=== PATIENT | male | born 1965 | race Hispanic/Latino ===

== ENCOUNTER → 2019-07-15 | Outpatient (CLI) | payer OTHER | END | disposition home or self-care (01) | LOC: RAH 07-10 10:26 | PROVIDERS: ATTEND Family Medicine | DX: R94.5 Abnormal results of liver function studies (principal) | CPT/HCPCS: 76705 ==

== ENCOUNTER 2022-07-07 00:30 | Emergency (ER) | payer OTHER ==
[~2022-07-07] VITALS: Ht 170.2 cm; Wt 82.6 kg
[2022-07-07 01:28] LABS: INFLUENZA TYPE A NEGATIVE FOR TYPE A (NEG); INFLUENZA TYPE B NEGATIVE FOR TYPE B (NEG)
[2022-07-07 01:35] VITALS: BP 135/88
== END 2022-07-07 01:40 | disposition home or self-care (01) ==
LOC: EDH 00:30
DX: R05.9 Cough, unspecified (principal); B34.9 Viral infection, unspecified; Z20.822 Contact with and (suspected) exposure to COVID-19
CPT/HCPCS: 99283; 87635; 87807; 87804 ×2; C9803

== ENCOUNTER → 2023-08-28 | Outpatient (CLI) | payer OTHER | END | disposition home or self-care (01) | LOC: SHCH 11:19 | PROVIDERS: ATTEND Internal Medicine | DX: R01.1 Cardiac murmur, unspecified (principal); I10 Essential (primary) hypertension; E78.5 Hyperlipidemia, unspecified; Z95.1 Presence of aortocoronary bypass graft | CPT/HCPCS: 93306 ==

== ENCOUNTER → 2024-04-22 | Outpatient (CLI) | payer OTHER | END | disposition home or self-care (01) | LOC: RAH 09:45 | PROVIDERS: ATTEND Family Medicine | DX: K40.90 Unilateral inguinal hernia, without obstruction or gangrene, not specified as recurrent (principal) | CPT/HCPCS: 76870 ==

== ENCOUNTER → 2024-05-02 | Outpatient (CLI) | payer OTHER ==
[2024-05-02 12:22] LABS: CREATININE 0.9 mg/dL (0.5-1.3); POTASSIUM 4.4 mmol/L (3.5-5.1)
== END | disposition home or self-care (01) ==
LOC: LAB 11:16
PROVIDERS: ATTEND Internal Medicine
DX: R07.9 Chest pain, unspecified (principal)
CPT/HCPCS: 36415; 80048

== ENCOUNTER 2024-05-04 18:27 | Inpatient (IN) | payer OTHER ==
[~2024-05-04] VITALS: Ht 167.6 cm; Wt 84.8 kg
[2024-05-04 18:52] LABS: BASOPHILS # (AUTO) 0.04 K/uL (0.00-0.20); BASOPHILS % (AUTO) 0.5 % (0.0-5.0); EOSINOPHILS # (AUTO) 0.07 K/uL (0.00-0.70); EOSINOPHILS % (AUTO) 0.9 % (0.0-8.0); IMMATURE GRANULOCYTE ABSOLUTE 0.01 K/uL (0-1); LYMPHOCYTES # (AUTO) 2.1 K/uL (1.0-4.8); LYMPHOCYTES % (AUTO) 25.2 % (21.0-51.0); MEAN CORPUSCULAR HEMOGLOBIN 34.3 pg (27.0-33.0); MEAN CORPUSCULAR HGB CONC 34.8 g/dL (32.0-36.0); MEAN CORPUSCULAR VOLUME 98.7 fL (79-99); MONOCYTES # (AUTO) 0.8 K/uL (0.1-1.0); MONOCYTES % (AUTO) 10.2 % (3.0-13.0); NEUTROPHILS # (AUTO) 5.2 K/uL (1.8-7.7); NEUTROPHILS % (AUTO) 63.1 % (40.0-77.0); PLATELET COUNT (AUTO) 278 K/uL (130-400); RED BLOOD CELL COUNT(AUTO) 4.46 MIL/uL (4.50-6.20); RED CELL DISTRIBUTION WIDTH 11.4 % (11.0-15.5); WHITE BLOOD COUNT (AUTO) 8.2 K/uL (4.8-10.8)
[2024-05-04 18:57] LABS: CREATININE 1.1 mg/dL (0.5-1.3); POTASSIUM 3.6 mmol/L (3.5-5.1)
[2024-05-04 18:59] LABS: INR 0.96 (0.85-1.15); PROTHROMBIN TIME 10.4 SEC (9.6-11.6)
[2024-05-04 19:01] LABS: PARTIAL THROMBOPLASTIN TIME 26.2 SEC (26.3-35.5)
[2024-05-04 19:21] LABS: B-TYPE NATRIURETIC PEPTIDE 62 pg/mL (0-100)
[2024-05-04] MEDS: HEParin 5,000 UNIT VIAL IV ONE (19:40)
[2024-05-04] MEDS: HEParin 25,000 UNITS/250ML D5W 250 ML IV PRN (19:41)
[2024-05-04] MEDS: CLOPIDOGREL 300MG TAB PO ONE (19:52)
[2024-05-04] MEDS: ASPIRIN 325MG TAB PO ONE (19:52)
[2024-05-04] MEDS: 0.9%NACL 1000ML 1,000 ML IV SCH (20:28)
[2024-05-04] MEDS ORDERED: ONDANSETRON 4MG INJ IVP PRN (20:30)
[2024-05-04] MEDS ORDERED: LACTULOSE 20 GM/30 ML UDCUP PO PRN (20:30)
[2024-05-04] MEDS ORDERED: DEXTROSE 50%-WATER 50 ML DISP.SYRIN IV PRN (20:30)
[2024-05-04] MEDS ORDERED: GLUCAGON 1MG KIT 1 MG ML IM PRN (20:30)
[2024-05-04] MEDS ORDERED: ALBUTEROL 0.083% 2.5 MG/3 ML INH IH PRN (20:30)
[2024-05-04] MEDS ORDERED: MAGNESIUM 2GM PREMIX 50ML 50 ML IV PRN (20:30)
[2024-05-04] MEDS ORDERED: LAbetaLOL 20MG SYG IV PRN (20:30)
[2024-05-04] MEDS: INSULIN humuLIN R 100 UNIT/ML 3ML SQ SCH (21:00)
[2024-05-04 22:28] LABS: AMPHET/METH SCREEN,URINE NEGATIVE (NEGATIVE); BARBITURATE SCREEN, URINE NEGATIVE (NEGATIVE); BENZODIAZEPINES SCREEN,URINE NEGATIVE (NEGATIVE); CANNABINOID SCREEN,URINE NEGATIVE (NEGATIVE); COCAINE SCREEN,URINE NEGATIVE (NEGATIVE); OPIATE SCREEN,URINE NEGATIVE (NEGATIVE); PHENCYCLIDINE SCREEN,URINE NEGATIVE (NEGATIVE)
[2024-05-04 22:50] VITALS: O2SAT 100
[2024-05-05] VITALS (10 sets, daily range): BP systolic 91–124; BP diastolic 63–82; PULSE 52–69; RESP 16–20; TEMP 98–98.9; O2SAT 97–100
[2024-05-05 02:36] LABS: INR 1.05 (0.85-1.15); PROTHROMBIN TIME 11.3 SEC (9.6-11.6)
[2024-05-05 02:39] LABS: PARTIAL THROMBOPLASTIN TIME 97.9 SEC (26.3-35.5)
[2024-05-05] MEDS: acetaMINOPHEN 325 MG TAB PO PRN (03:13)
[2024-05-05 04:17] LABS: BASOPHILS # (AUTO) 0.03 K/uL (0.00-0.20); BASOPHILS % (AUTO) 0.4 % (0.0-5.0); EOSINOPHILS # (AUTO) 0.04 K/uL (0.00-0.70); EOSINOPHILS % (AUTO) 0.6 % (0.0-8.0); IMMATURE GRANULOCYTE ABSOLUTE 0.03 K/uL (0-1); LYMPHOCYTES # (AUTO) 1.1 K/uL (1.0-4.8); LYMPHOCYTES % (AUTO) 15.7 % (21.0-51.0); MEAN CORPUSCULAR HEMOGLOBIN 34.2 pg (27.0-33.0); MEAN CORPUSCULAR HGB CONC 34.5 g/dL (32.0-36.0); MEAN CORPUSCULAR VOLUME 99.2 fL (79-99); MONOCYTES # (AUTO) 0.8 K/uL (0.1-1.0); MONOCYTES % (AUTO) 11.3 % (3.0-13.0); NEUTROPHILS # (AUTO) 5.2 K/uL (1.8-7.7); NEUTROPHILS % (AUTO) 71.6 % (40.0-77.0); PLATELET COUNT (AUTO) 218 K/uL (130-400); RED BLOOD CELL COUNT(AUTO) 3.83 MIL/uL (4.50-6.20); RED CELL DISTRIBUTION WIDTH 11.7 % (11.0-15.5); WHITE BLOOD COUNT (AUTO) 7.3 K/uL (4.8-10.8)
[2024-05-05 04:47] LABS: CREATININE 0.8 mg/dL (0.5-1.3); HEMOGLOBIN A1C 5.4 % (4.0-6.0); MAGNESIUM 1.8 mg/dL (1.80-2.40); PHOSPHORUS 3.6 mg/dL (2.5-4.9); POTASSIUM 3.7 mmol/L (3.5-5.1); THYROID STIMULATING HORMONE 2.35 uIU/mL (0.36-3.74)
[2024-05-05] MEDS: ASPIRIN 81MG CHEW TAB PO SCH (10:21)
[2024-05-05] MEDS: PANTOPRAZOLE 40 MG TAB DR PO SCH (10:21)
[2024-05-05] MEDS: CLOPIDOGREL 75MG TAB PO SCH (10:22)
[2024-05-05] MEDS: POTASSIUM CHLORIDE 10% ELIXIR 20 MEQ/15 ML UDCUP PO PRN (12:38)
[2024-05-05] MEDS: metoPROLOL tartRATE 25 MG TAB PO ONE (13:29)
[2024-05-05 14:10] LABS: INR 1.04 (0.85-1.15); PROTHROMBIN TIME 11.2 SEC (9.6-11.6)
[2024-05-05 14:11] LABS: PARTIAL THROMBOPLASTIN TIME 61.2 SEC (26.3-35.5)
[2024-05-05] MEDS: metoPROLOL tartRATE 25 MG TAB PO SCH (20:46)
[2024-05-05] MEDS: atorVAStatin 40 MG TABLET PO SCH (20:46)
[2024-05-06] VITALS (25 sets, daily range): BP systolic 94–154; BP diastolic 51–84; PULSE 58–86; RESP 8–20; TEMP 98–99; O2SAT 93–99
[2024-05-06 03:58] LABS: HEMATOCRIT 39.9 % (42-54); MEAN CORPUSCULAR HEMOGLOBIN 34.5 pg (27.0-33.0); MEAN CORPUSCULAR HGB CONC 34.3 g/dL (32.0-36.0); MEAN CORPUSCULAR VOLUME 100.5 fL (79-99); RED BLOOD CELL COUNT(AUTO) 3.97 MIL/uL (4.50-6.20); RED CELL DISTRIBUTION WIDTH 11.8 % (11.0-15.5); WHITE BLOOD COUNT (AUTO) 7.3 K/uL (4.8-10.8)
[2024-05-06 04:06] LABS: CREATININE 0.8 mg/dL (0.5-1.3); POTASSIUM 3.7 mmol/L (3.5-5.1)
[2024-05-06] MEDS ORDERED: 0.9% NACL 500ML IV.SOLN 500 ML IV SCH (05:00)
[2024-05-06] MEDS: HEParin 25,000 UNITS/250ML D5W 250 ML IV SCH (10:00)
[2024-05-06] MEDS ORDERED: BIVALIRUDIN 250 MG/VIAL IV ONE (15:01)
[2024-05-06] MEDS ORDERED: LIDOCAINE HCL 400MG/20ML VIAL ONE (15:01)
[2024-05-06] MEDS ORDERED: IOHEXOL-350 50ML VIAL IV ONE (15:01)
[2024-05-06] MEDS ORDERED: NITROGLYCERIN 50MG VIAL ONE (15:02)
[2024-05-06] MEDS ORDERED: HEParin-NS 1,000 UNIT/500 ML 1,000 ML IV ONE (15:02)
[2024-05-06] MEDS ORDERED: IOHEXOL 350 MG/ML 100ML INFUS..BTL IV ONE ×2 (15:03→16:07)
[2024-05-06] MEDS ORDERED: HEParin 10,000 UNIT/10ML (1,000 UNIT/ML) VIAL ONE (15:13)
[2024-05-06] MEDS ORDERED: MIDAZOLAM HCL 1 MG/ML 2ML VIAL ONE (15:34)
[2024-05-06] MEDS ORDERED: FENTanyl CITRate PF 50 MCG/1 ML 2ML VIAL ONE (15:34)
[2024-05-06] MEDS ORDERED: HEParin 25,000 UNITS/250ML D5W 250 ML IV ONE (16:29)
[2024-05-06] MEDS: 0.9%NACL 1000ML 1,000 ML IV SCH (17:55)
[2024-05-06 22:52] LABS: INR 1.06 (0.85-1.15); PROTHROMBIN TIME 11.4 SEC (9.6-11.6)
[2024-05-06 22:54] LABS: PARTIAL THROMBOPLASTIN TIME 78.4 SEC (26.3-35.5)
[2024-05-07] VITALS (33 sets, daily range): BP systolic 97–132; BP diastolic 47–78; PULSE 57–79; RESP 10–25; TEMP 98.5–98.7; O2SAT 95–99
[2024-05-07 05:34] LABS: BASOPHILS # (AUTO) 0.02 K/uL (0.00-0.20); BASOPHILS % (AUTO) 0.2 % (0.0-5.0); EOSINOPHILS # (AUTO) 0.03 K/uL (0.00-0.70); EOSINOPHILS % (AUTO) 0.4 % (0.0-8.0); HEMATOCRIT 38.7 % (42-54); IMMATURE GRANULOCYTE ABSOLUTE 0.02 K/uL (0-1); LYMPHOCYTES % (AUTO) 11.9 % (21.0-51.0); MEAN CORPUSCULAR HEMOGLOBIN 34.3 pg (27.0-33.0); MEAN CORPUSCULAR HGB CONC 34.9 g/dL (32.0-36.0); MEAN CORPUSCULAR VOLUME 98.2 fL (79-99); MONOCYTES # (AUTO) 0.7 K/uL (0.1-1.0); NEUTROPHILS # (AUTO) 6.6 K/uL (1.8-7.7); NEUTROPHILS % (AUTO) 79.3 % (40.0-77.0); PLATELET COUNT (AUTO) 206 K/uL (130-400); RED BLOOD CELL COUNT(AUTO) 3.94 MIL/uL (4.50-6.20); RED CELL DISTRIBUTION WIDTH 11.5 % (11.0-15.5); WHITE BLOOD COUNT (AUTO) 8.3 K/uL (4.8-10.8)
[2024-05-07 05:41] LABS: CREATININE 0.8 mg/dL (0.5-1.3); POTASSIUM 3.7 mmol/L (3.5-5.1)
[2024-05-07 05:46] LABS: INR 1.05 (0.85-1.15); PROTHROMBIN TIME 11.3 SEC (9.6-11.6)
[2024-05-07 05:48] LABS: PARTIAL THROMBOPLASTIN TIME 69.2 SEC (26.3-35.5)
[2024-05-07] MEDS ORDERED: IOHEXOL 350 MG/ML 100ML INFUS..BTL IV ONE (11:40)
[2024-05-07 11:50] LABS: BILIRUBIN,DIRECT 0.2 mg/dL (0.0-0.3); BILIRUBIN,TOTAL 0.9 mg/dL (0.2-1.0); TOTAL PROTEIN, SERUM 6.7 g/dL (6.0-8.3)
[2024-05-07 16:10] LABS: ABG BASE EXCESS -0.1 mmol/L (-2.0-3.0); ABG HCO3 23.2 mmol/L (21.0-28.0); ABG OXYGEN SATURATION 94.9 % (94.0-98.0); ABG PCO2 34 mmHg (35-48); ABG PH 7.452 (7.350-7.450); PO2, ARTERIAL BG 70.1 mmHg (83.0-108.0); VENT MODE, BG RA (ROOM AIR)
[2024-05-08] VITALS (28 sets, daily range): BP systolic 87–149; BP diastolic 50–121; PULSE 62–109; RESP 7–19; TEMP 98.2–101.7; O2SAT 95–100
[2024-05-08 03:49] LABS: BASOPHILS # (AUTO) 0.02 K/uL (0.00-0.20); BASOPHILS % (AUTO) 0.2 % (0.0-5.0); EOSINOPHILS # (AUTO) 0.04 K/uL (0.00-0.70); EOSINOPHILS % (AUTO) 0.4 % (0.0-8.0); HEMATOCRIT 36.8 % (42-54); IMMATURE GRANULOCYTE ABSOLUTE 0.02 K/uL (0-1); LYMPHOCYTES % (AUTO) 9.7 % (21.0-51.0); MEAN CORPUSCULAR HEMOGLOBIN 34.4 pg (27.0-33.0); MEAN CORPUSCULAR HGB CONC 35.6 g/dL (32.0-36.0); MEAN CORPUSCULAR VOLUME 96.6 fL (79-99); MONOCYTES # (AUTO) 0.8 K/uL (0.1-1.0); NEUTROPHILS # (AUTO) 8.2 K/uL (1.8-7.7); NEUTROPHILS % (AUTO) 81.5 % (40.0-77.0); PLATELET COUNT (AUTO) 190 K/uL (130-400); RED BLOOD CELL COUNT(AUTO) 3.81 MIL/uL (4.50-6.20); RED CELL DISTRIBUTION WIDTH 11.6 % (11.0-15.5)
[2024-05-08 04:00] LABS: CREATININE 0.8 mg/dL (0.5-1.3); INR 1.05 (0.85-1.15); POTASSIUM 3.5 mmol/L (3.5-5.1); PROTHROMBIN TIME 11.3 SEC (9.6-11.6)
[2024-05-08 04:02] LABS: PARTIAL THROMBOPLASTIN TIME 51.8 SEC (26.3-35.5)
[2024-05-08 04:04] LABS: TOTAL PROTEIN, SERUM 6.8 g/dL (6.0-8.3)
[2024-05-08 04:10] LABS: B-TYPE NATRIURETIC PEPTIDE 394 pg/mL (0-100)
[2024-05-08] MEDS: KCL 20 MEQ ERTAB PO PRN (06:26)
[2024-05-08] MEDS ORDERED: NOREPINEPHRIN 8MG/250ML NS 250 ML IV PRN (08:00)
[2024-05-08] MEDS ORDERED: NITROGLYCERIN 50MG/D5W 250ML 1 BOT ONE (09:38)
[2024-05-08] MEDS ORDERED: LIDOCAINE 2G/250ML 250 ML IV ONE (09:39)
[2024-05-08] MEDS ORDERED: ceFAZolin SODIUM 1 GM VIAL ONE (12:42)
[2024-05-08] MEDS ORDERED: PAPAVERINE HCL 30 MG/ML 2ML VIAL ONE (12:42)
[2024-05-08] MEDS ORDERED: HEParin-NS 1,000 UNIT/500 ML 500 ML IV ONE (12:42)
[2024-05-08] MEDS ORDERED: LACTULOSE 20 GM/30 ML UDCUP PO PRN (16:30)
[2024-05-08] MEDS ORDERED: MAGNESIUM HYDROXIDE 30 ML/UDCUP PO PRN (16:30)
[2024-05-08] MEDS ORDERED: proPOFol 10 MG/ML 20ML VIAL IV ONE (16:32)
[2024-05-08] MEDS ORDERED: HEParin 10,000 UNIT/10ML (1,000 UNIT/ML) VIAL ONE ×3 (16:32→19:43)
[2024-05-08] MEDS ORDERED: PROTAMINE SULFATE 10 MG/ML 25ML VIAL IV ONE (16:32)
[2024-05-08] MEDS ORDERED: EPINEPHrine PF 1MG (1:1,000) 1 MG/ML AMP ONE (16:32)
[2024-05-08] MEDS ORDERED: LIDOCAINE PF 100MG/5ML (2%) SYRINGE 5ML ONE ×2 (16:32→19:33)
[2024-05-08] MEDS ORDERED: SODIUM BICARB 50MEQ 50ML VIAL 200 ML ONE (16:32)
[2024-05-08] MEDS ORDERED: NOREPINEPHRINE BITARTRATE 1 MG/1 ML ML IV ONE (16:32)
[2024-05-08] MEDS ORDERED: FENTanyl CITRate PF 50 MCG/1 ML 20ML VIAL IJ ONE ×2 (16:32→21:45)
[2024-05-08] MEDS ORDERED: GLYCOPYRROLATE 0.2 MG/ML 5 ML VIAL ONE (16:33)
[2024-05-08] MEDS ORDERED: rocuRONium bROMide 10MG/1ML 5ML VL ONE ×2 (16:33→19:20)
[2024-05-08] MEDS ORDERED: MIDAZOLAM HCL 1 MG/ML 2ML VIAL ONE (16:33)
[2024-05-08] MEDS ORDERED: ETOMIDATE 20MG VIAL ONE (16:33)
[2024-05-08] MEDS: ceFAZolin SODIUM 2 GM VIAL IVPB ONE (16:55)
[2024-05-08] MEDS ORDERED: acetaMINOPHEN 325 MG TAB PO PRN (17:00)
[2024-05-08] MEDS ORDERED: NITROGLYCERIN 50MG/D5W 250ML 250 BOT IV SCH (17:00)
[2024-05-08] MEDS ORDERED: NOREPINEPHRINE BITARTRATE 8 MG in DEXTROSE 5%-WATER 250 ML IV PRN (17:00)
[2024-05-08] MEDS ORDERED: DEXTROSE 50%-WATER 50 ML DISP.SYRIN IV PRN (17:00)
[2024-05-08] MEDS ORDERED: aminoCAProic ACID 5,000MG VIAL 15,000 MG in 0.9% NACL 250ML 250 ML IV SCH (17:00)
[2024-05-08] MEDS ORDERED: 0.9%NACL 10ML VIAL IVP PRN (17:00)
[2024-05-08] MEDS ORDERED: CALCIUM GLUC 1GM 1 GM in 0.9%NACL 50ML 50 ML IV PRN (17:00)
[2024-05-08] MEDS ORDERED: 0.9% NACL 500ML IV.SOLN 500 ML IV SCH (17:00)
[2024-05-08] MEDS ORDERED: EPINEPHrine PF 1MG (1:1,000) 10 MG in 0.9% NACL 250ML 240 ML IV PRN (17:00)
[2024-05-08] MEDS ORDERED: ALBUMIN (HUMAN) 5% 250 ML IV PRN (17:00)
[2024-05-08] MEDS ORDERED: GLUCAGON 1MG KIT 1 MG ML IM PRN (17:00)
[2024-05-08] MEDS ORDERED: morPHINE 2 MG SYG IV PRN (17:00)
[2024-05-08] MEDS ORDERED: SODIUM BICARB 50MEQ 50ML VIAL IV PRN (17:00)
[2024-05-08] MEDS ORDERED: proPOFol 1000 MG/100 ML 100 ML IV PRN (17:00)
[2024-05-08] MEDS ORDERED: INSULIN REGULAR, HUMAN 3ML 100 UNIT in 0.9%NACL 100ML 99 ML IV SCH (17:00)
[2024-05-08] MEDS ORDERED: acetaMINOPHEN 650 MG SUPPOSITORY RC PRN (17:00)
[2024-05-08] MEDS ORDERED: morPHINE 4 MG SYG IV PRN (17:00)
[2024-05-08] MEDS ORDERED: ONDANSETRON 4MG INJ IV PRN (17:00)
[2024-05-08 17:16] LABS: ABG BASE EXCESS -0.8 mmol/L (-2.0-3.0); ABG HCO3 24.9 mmol/L (21.0-28.0); ABG OXYGEN SATURATION 99.7 % (94.0-98.0); ABG PCO2 45 mmHg (35-48); ABG PH 7.361 (7.350-7.450); CARBON MONOXIDE 0.2 % (0.5-1.5); DEVICE COMMENT 1; HHb 0.3; PO2, ARTERIAL BG 330.6 mmHg (83.0-108.0)
[2024-05-08] MEDS ORDERED: AMIOdarone 150MG VIAL ONE (17:33)
[2024-05-08] MEDS ORDERED: ATROPINE 1MG SYG IVP ONE (17:35)
[2024-05-08] MEDS ORDERED: POTASSIUM CHLORIDE 20MEQ/100ML 100 ML IV ONE (18:13)
[2024-05-08] MEDS ORDERED: DELNIDO FORMULA 0 BAG IV ONE (18:17)
[2024-05-08 19:50] LABS: ABG BASE EXCESS -1.3 mmol/L (-2.0-3.0); ABG HCO3 22.3 mmol/L (21.0-28.0); ABG OXYGEN SATURATION 99.2 % (94.0-98.0); ABG PCO2 34 mmHg (35-48); ABG PH 7.435 (7.350-7.450); CARBON MONOXIDE 0.2 % (0.5-1.5); DEVICE COMMENT 2; HHb 0.8; PO2, ARTERIAL BG 309.8 mmHg (83.0-108.0)
[2024-05-08] MEDS ORDERED: PHENYLEPHRINE HCL 10 MG/ML 1ML VIAL IV ONE (20:14)
[2024-05-08 20:23] LABS: ABG BASE EXCESS 0.7 mmol/L (-2.0-3.0); ABG OXYGEN SATURATION 99.2 % (94.0-98.0); ABG PCO2 29 mmHg (35-48); ABG PH 7.512 (7.350-7.450); CARBON MONOXIDE 0.2 % (0.5-1.5); DEVICE COMMENT 3; HHb 0.8; PO2, ARTERIAL BG 349.1 mmHg (83.0-108.0)
[2024-05-08 21:06] LABS: ABG BASE EXCESS -2.8 mmol/L (-2.0-3.0); ABG OXYGEN SATURATION 98.8 % (94.0-98.0); ABG PCO2 28 mmHg (35-48); ABG PH 7.479 (7.350-7.450); CARBON MONOXIDE 0.2 % (0.5-1.5); DEVICE COMMENT 5; HHb 1.2; PO2, ARTERIAL BG 248.2 mmHg (83.0-108.0)
[2024-05-08 22:17] LABS: ABG BASE EXCESS 5.2 mmol/L (-2.0-3.0); ABG HCO3 27.6 mmol/L (21.0-28.0); ABG OXYGEN SATURATION 96.4 % (94.0-98.0); ABG PCO2 33 mmHg (35-48); ABG PH 7.542 (7.350-7.450); CARBON MONOXIDE 0.3 % (0.5-1.5); HHb 3.6; PO2, ARTERIAL BG 91.1 mmHg (83.0-108.0); VENT MODE, BG SMV PS10 (ROOM AIR)
[2024-05-08 22:42] LABS: HEMATOCRIT 30.6 % (42-54); MEAN CORPUSCULAR HEMOGLOBIN 35.2 pg (27.0-33.0); MEAN CORPUSCULAR HGB CONC 35.3 g/dL (32.0-36.0); MEAN CORPUSCULAR VOLUME 99.7 fL (79-99); RED BLOOD CELL COUNT(AUTO) 3.07 MIL/uL (4.50-6.20); RED CELL DISTRIBUTION WIDTH 11.5 % (11.0-15.5); WHITE BLOOD COUNT (AUTO) 15.2 K/uL (4.8-10.8)
[2024-05-08 22:53] LABS: MAGNESIUM 1.3 mg/dL (1.80-2.40); PHOSPHORUS 4.6 mg/dL (2.5-4.9)
[2024-05-08 23:03] LABS: INR 1.34 (0.85-1.15); PROTHROMBIN TIME 14.2 SEC (9.6-11.6)
[2024-05-08 23:05] LABS: PARTIAL THROMBOPLASTIN TIME 26.1 SEC (26.3-35.5)
[2024-05-08 23:14] LABS: ABG BASE EXCESS 3.2 mmol/L (-2.0-3.0); ABG HCO3 26.2 mmol/L (21.0-28.0); ABG OXYGEN SATURATION 98.2 % (94.0-98.0); ABG PCO2 34 mmHg (35-48); ABG PH 7.501 (7.350-7.450); CARBON MONOXIDE 0.3 % (0.5-1.5); HHb 1.8; PO2, ARTERIAL BG 156.6 mmHg (83.0-108.0); VENT MODE, BG SIMV PS10 (ROOM AIR)
[2024-05-08] MEDS: dexmedeTOMIDine 400MCG/NS100ML IV SCH (23:21)
[2024-05-08] MEDS: 0.9%NACL 1000ML 1,000 ML IV SCH (23:21)
[2024-05-08] MEDS: acetaMINOPHEN 1,000 MG/100 ML VIAL IV SCH (23:21)
[2024-05-08] MEDS: POTASSIUM CHLORIDE 20MEQ/100ML 100 ML IV PRN (23:22)
[2024-05-08] MEDS: ASPIRIN 81MG CHEW TAB NG ONE (23:23)
[2024-05-08] MEDS: MAGNESIUM 2GM PREMIX 50ML 50 ML IV PRN (23:23)
[2024-05-08] MEDS: doCUSate SODIUM 100 MG CAP PO ONE (23:23)
[2024-05-08] MEDS: ceFAZolin SODIUM 2 GM VIAL IVPB SCH ×2 (23:26→23:35)
[2024-05-08] MEDS: FAMOTIDINE 20MG VIAL IV SCH (23:26)
[2024-05-09] VITALS (106 sets, daily range): BP systolic 87–124; BP diastolic 47–76; PULSE 92–126; RESP 5–37; TEMP 98.7–101.2; O2SAT 98–100
[2024-05-09 00:02] LABS: ABG BASE EXCESS 4.3 mmol/L (-2.0-3.0); ABG HCO3 27.3 mmol/L (21.0-28.0); ABG OXYGEN SATURATION 97.6 % (94.0-98.0); ABG PCO2 35 mmHg (35-48); ABG PH 7.508 (7.350-7.450); CARBON MONOXIDE 0.3 % (0.5-1.5); HHb 2.4; PO2, ARTERIAL BG 138.6 mmHg (83.0-108.0); VENT MODE, BG SIM PS10 (ROOM AIR)
[2024-05-09 01:18] LABS: ABG BASE EXCESS 5.9 mmol/L (-2.0-3.0); ABG HCO3 29.3 mmol/L (21.0-28.0); ABG OXYGEN SATURATION 97.9 % (94.0-98.0); ABG PCO2 38 mmHg (35-48); CARBON MONOXIDE 0.3 % (0.5-1.5); HHb 2.1; PO2, ARTERIAL BG 145.2 mmHg (83.0-108.0); VENT MODE, BG SIMV PS10 (ROOM AIR)
[2024-05-09 02:24] LABS: ABG HCO3 28.4 mmol/L (21.0-28.0); ABG OXYGEN SATURATION 96.6 % (94.0-98.0); ABG PCO2 42 mmHg (35-48); ABG PH 7.448 (7.350-7.450); CARBON MONOXIDE 0.3 % (0.5-1.5); HHb 3.4; VENT MODE, BG SIMV PS10 (ROOM AIR)
[2024-05-09 03:19] LABS: ABG BASE EXCESS 3.4 mmol/L (-2.0-3.0); ABG HCO3 28.3 mmol/L (21.0-28.0); ABG OXYGEN SATURATION 96.2 % (94.0-98.0); ABG PCO2 44 mmHg (35-48); ABG PH 7.422 (7.350-7.450); CARBON MONOXIDE 0.3 % (0.5-1.5); HHb 3.8; PO2, ARTERIAL BG 98.7 mmHg (83.0-108.0); VENT MODE, BG SIMVPS10 (ROOM AIR)
[2024-05-09 04:00] LABS: BASOPHILS # (AUTO) 0.03 K/uL (0.00-0.20); BASOPHILS % (AUTO) 0.2 % (0.0-5.0); HEMATOCRIT 27.7 % (42-54); IMMATURE GRANULOCYTE ABSOLUTE 0.07 K/uL (0-1); LYMPHOCYTES % (AUTO) 7.3 % (21.0-51.0); MEAN CORPUSCULAR HEMOGLOBIN 34.9 pg (27.0-33.0); MEAN CORPUSCULAR VOLUME 99.6 fL (79-99); MONOCYTES # (AUTO) 1.6 K/uL (0.1-1.0); MONOCYTES % (AUTO) 11.6 % (3.0-13.0); NEUTROPHILS # (AUTO) 10.9 K/uL (1.8-7.7); NEUTROPHILS % (AUTO) 80.4 % (40.0-77.0); PLATELET COUNT (AUTO) 159 K/uL (130-400); RED BLOOD CELL COUNT(AUTO) 2.78 MIL/uL (4.50-6.20); RED CELL DISTRIBUTION WIDTH 11.6 % (11.0-15.5); WHITE BLOOD COUNT (AUTO) 13.6 K/uL (4.8-10.8)
[2024-05-09 04:10] LABS: CREATININE 1.3 mg/dL (0.5-1.3); MAGNESIUM 2.1 mg/dL (1.80-2.40); POTASSIUM 3.9 mmol/L (3.5-5.1)
[2024-05-09 04:13] LABS: ABG BASE EXCESS 3.4 mmol/L (-2.0-3.0); ABG HCO3 27.5 mmol/L (21.0-28.0); ABG OXYGEN SATURATION 96.8 % (94.0-98.0); ABG PCO2 40 mmHg (35-48); ABG PH 7.457 (7.350-7.450); CARBON MONOXIDE 0.3 % (0.5-1.5); HHb 3.2; PO2, ARTERIAL BG 103.9 mmHg (83.0-108.0); VENT MODE, BG SIMV PS10 (ROOM AIR)
[2024-05-09 04:14] LABS: INR 1.19 (0.85-1.15); PROTHROMBIN TIME 12.7 SEC (9.6-11.6)
[2024-05-09 04:16] LABS: PARTIAL THROMBOPLASTIN TIME 27.7 SEC (26.3-35.5)
[2024-05-09 04:44] LABS: PHOSPHORUS 1.2 mg/dL (2.5-4.9)
[2024-05-09 05:10] LABS: ABG BASE EXCESS 4.6 mmol/L (-2.0-3.0); ABG HCO3 29.1 mmol/L (21.0-28.0); ABG OXYGEN SATURATION 96.9 % (94.0-98.0); ABG PCO2 43 mmHg (35-48); CARBON MONOXIDE 0.3 % (0.5-1.5); HHb 3.1; PO2, ARTERIAL BG 109.3 mmHg (83.0-108.0); VENT MODE, BG SIMV PS 10 (ROOM AIR)
[2024-05-09] MEDS: POTASSIUM PHOS 15 mMOL+NS250ML 250 ML IV PRN (05:46)
[2024-05-09 06:45] LABS: ABG BASE EXCESS 3.1 mmol/L (-2.0-3.0); ABG HCO3 27.2 mmol/L (21.0-28.0); ABG OXYGEN SATURATION 97.3 % (94.0-98.0); ABG PCO2 40 mmHg (35-48); ABG PH 7.451 (7.350-7.450); CARBON MONOXIDE 0.3 % (0.5-1.5); DEVICE COMMENT ALINE; HHb 2.7; PO2, ARTERIAL BG 114.4 mmHg (83.0-108.0); VENT MODE, BG SIMV (ROOM AIR)
[2024-05-09] MEDS: NOREPINEPHRIN 8MG/250ML NS 250 ML IV ONE (07:42)
[2024-05-09 07:45] LABS: ABG BASE EXCESS 3.2 mmol/L (-2.0-3.0); ABG HCO3 27.2 mmol/L (21.0-28.0); ABG OXYGEN SATURATION 96.8 % (94.0-98.0); ABG PCO2 39 mmHg (35-48); ABG PH 7.459 (7.350-7.450); CARBON MONOXIDE 0.3 % (0.5-1.5); DEVICE COMMENT ALINE; HHb 3.2; PO2, ARTERIAL BG 104.5 mmHg (83.0-108.0); VENT MODE, BG SIMV (ROOM AIR)
[2024-05-09] MEDS: furoSEMIDE 20MG VIAL IV SCH (07:52)
[2024-05-09] MEDS ORDERED: morPHINE 2 MG SYG IV PRN (09:00)
[2024-05-09] MEDS: ALBUMIN (HUMAN) 5% 250 ML IV STA (09:30)
[2024-05-09] MEDS: traMADol HCL 50 MG TABLET PO PRN (09:37)
[2024-05-09 10:00] LABS: ABG BASE EXCESS 3.6 mmol/L (-2.0-3.0); ABG HCO3 27.9 mmol/L (21.0-28.0); ABG OXYGEN SATURATION 96.8 % (94.0-98.0); ABG PCO2 41 mmHg (35-48); ABG PH 7.451 (7.350-7.450); CARBON MONOXIDE 0.3 % (0.5-1.5); DEVICE COMMENT CAFM; HHb 3.2; PO2, ARTERIAL BG 103.4 mmHg (83.0-108.0); VENT MODE, BG CAFM (ROOM AIR)
[2024-05-09] MEDS ORDERED: BENZOCAINE/MENTH/CETYLPYRD CL 1 EACH LOZENGE MM ONE (15:29)
[2024-05-09] MEDS: atorVAStatin 40 MG TABLET PO SCH (20:41)
[2024-05-10] VITALS (102 sets, daily range): BP systolic 94–134; BP diastolic 49–72; PULSE 85–110; RESP 5–53; TEMP 98.4–99.1; O2SAT 97–99
[2024-05-10 04:07] LABS: HEMATOCRIT 23.9 % (42-54); MEAN CORPUSCULAR HGB CONC 34.3 g/dL (32.0-36.0); MEAN CORPUSCULAR VOLUME 102.1 fL (79-99); RED BLOOD CELL COUNT(AUTO) 2.34 MIL/uL (4.50-6.20); RED CELL DISTRIBUTION WIDTH 12.5 % (11.0-15.5); WHITE BLOOD COUNT (AUTO) 11.1 K/uL (4.8-10.8)
[2024-05-10 04:19] LABS: CREATININE 0.9 mg/dL (0.5-1.3)
[2024-05-10 04:23] LABS: INR 1.11 (0.85-1.15); PROTHROMBIN TIME 11.9 SEC (9.6-11.6)
[2024-05-10 04:24] LABS: PARTIAL THROMBOPLASTIN TIME 33.7 SEC (26.3-35.5)
[2024-05-10] MEDS ORDERED: DEXTROSE 50%-WATER 50 ML DISP.SYRIN IV PRN (07:00)
[2024-05-10] MEDS ORDERED: GLUCAGON 1MG KIT 1 MG ML IM PRN (07:00)
[2024-05-10] MEDS: INSULIN humuLIN R 100 UNIT/ML 3ML SQ SCH (07:30)
[2024-05-10] MEDS: furoSEMIDE 20 MG TABLET PO SCH (08:31)
[2024-05-10] MEDS: guaiFENesin-DM 200/20MG 10ML PO PRN (20:50)
[2024-05-10] MEDS: IpraTROPium/alBUTERol SULFATE 3 ML SOLUTION IH SCH (22:28)
[2024-05-11] VITALS (54 sets, daily range): BP systolic 46–147; BP diastolic 24–75; PULSE 76–103; RESP 7–31; TEMP 98–99.5; O2SAT 97–100
[2024-05-11 04:47] LABS: HEMATOCRIT 21.2 % (42-54); MEAN CORPUSCULAR HEMOGLOBIN 34.8 pg (27.0-33.0); MEAN CORPUSCULAR VOLUME 102.4 fL (79-99); RED BLOOD CELL COUNT(AUTO) 2.07 MIL/uL (4.50-6.20); RED CELL DISTRIBUTION WIDTH 12.1 % (11.0-15.5); WHITE BLOOD COUNT (AUTO) 9.1 K/uL (4.8-10.8)
[2024-05-11 04:56] LABS: CREATININE 0.9 mg/dL (0.5-1.3); MAGNESIUM 2.1 mg/dL (1.80-2.40)
[2024-05-11] MEDS: BUDESONIDE 0.5 MG/2 ML INH IH ONE (06:51)
[2024-05-11] MEDS: acetylCYSTeine10% 4ML VIAL IH SCH (06:54)
[2024-05-11] MEDS ORDERED: furoSEMIDE 20MG VIAL IV SCH (08:30)
[2024-05-11] MEDS: furoSEMIDE 20MG VIAL IV SCH (09:16)
[2024-05-11] MEDS: doCUSate SODIUM 100 MG CAP PO SCH (10:45)
[2024-05-11] MEDS: polyETHYLene GLYCol 3350 17 GM POWD.PACK PO SCH (10:46)
[2024-05-11] MEDS: furoSEMIDE 40MG VIAL IV SCH (21:17)
[2024-05-11] MEDS: FAMOTIDINE 20MG TAB PO SCH (21:17)
[2024-05-11] MEDS: metoPROLOL tartRATE 25 MG TAB PO SCH (21:17)
[2024-05-12] VITALS (14 sets, daily range): BP systolic 95–117; BP diastolic 60–77; PULSE 71–98; RESP 15–20; TEMP 98.2–99.5; O2SAT 84–98
[2024-05-12 04:06] LABS: MEAN CORPUSCULAR HEMOGLOBIN 34.7 pg (27.0-33.0); MEAN CORPUSCULAR HGB CONC 34.5 g/dL (32.0-36.0); MEAN CORPUSCULAR VOLUME 100.5 fL (79-99); RED BLOOD CELL COUNT(AUTO) 2.19 MIL/uL (4.50-6.20); RED CELL DISTRIBUTION WIDTH 11.8 % (11.0-15.5); WHITE BLOOD COUNT (AUTO) 10.7 K/uL (4.8-10.8)
[2024-05-12 04:22] LABS: CREATININE 0.8 mg/dL (0.5-1.3); POTASSIUM 3.6 mmol/L (3.5-5.1)
[2024-05-12] MEDS ORDERED: POTASSIUM CHLORIDE 10% ELIXIR 20 MEQ/15 ML UDCUP PO PRN (05:00)
[2024-05-12] MEDS: KCL 20 MEQ ERTAB PO PRN (06:39)
[2024-05-12] MEDS: IpraTROPium 0.5 MG/2.5 ML INH IH SCH (11:16)
[2024-05-12] MEDS: BisaCODYL 10 MG SUPP.RECT RC ONE (14:09)
[2024-05-12] MEDS: doCUSate SODIUM 100 MG CAP PO ONE (21:29)
[2024-05-13] VITALS (10 sets, daily range): BP systolic 93–119; BP diastolic 60–75; PULSE 90–109; RESP 18–22; TEMP 98–100.3; O2SAT 96–98
[2024-05-13 04:41] LABS: BASOPHILS # (AUTO) 0.04 K/uL (0.00-0.20); BASOPHILS % (AUTO) 0.4 % (0.0-5.0); EOSINOPHILS # (AUTO) 0.18 K/uL (0.00-0.70); EOSINOPHILS % (AUTO) 1.8 % (0.0-8.0); HEMATOCRIT 22.4 % (42-54); IMMATURE GRANULOCYTE ABSOLUTE 0.06 K/uL (0-1); LYMPHOCYTES % (AUTO) 10.4 % (21.0-51.0); MEAN CORPUSCULAR HEMOGLOBIN 34.3 pg (27.0-33.0); MEAN CORPUSCULAR HGB CONC 35.3 g/dL (32.0-36.0); MEAN CORPUSCULAR VOLUME 97.4 fL (79-99); MONOCYTES # (AUTO) 1.1 K/uL (0.1-1.0); MONOCYTES % (AUTO) 10.8 % (3.0-13.0); NEUTROPHILS # (AUTO) 7.5 K/uL (1.8-7.7); PLATELET COUNT (AUTO) 245 K/uL (130-400); RED CELL DISTRIBUTION WIDTH 11.7 % (11.0-15.5); WHITE BLOOD COUNT (AUTO) 9.9 K/uL (4.8-10.8)
[2024-05-13 04:53] LABS: ALBUMIN 2.5 g/dL (3.5-5.0); BILIRUBIN,TOTAL 0.7 mg/dL (0.2-1.0); CREATININE 0.9 mg/dL (0.5-1.3); POTASSIUM 3.6 mmol/L (3.5-5.1); TOTAL PROTEIN, SERUM 6.5 g/dL (6.0-8.3)
[2024-05-13] MEDS: furoSEMIDE 20MG VIAL IV SCH (08:43)
[2024-05-13] MEDS ORDERED: polyETHYLene GLYCol 3350 17 GM POWD.PACK PO SCH (09:00)
[2024-05-13] MEDS: traMADol HCL 50 MG TABLET PO PRN (09:59)
[2024-05-13] MEDS: acetaMINOPHEN 325 MG TAB PO PRN (20:36)
[2024-05-14] VITALS (10 sets, daily range): BP systolic 104–119; BP diastolic 73–76; PULSE 94–116; RESP 16–20; TEMP 98.9–99.5; O2SAT 97–99
[2024-05-14 03:48] LABS: BASOPHILS # (AUTO) 0.04 K/uL (0.00-0.20); BASOPHILS % (AUTO) 0.4 % (0.0-5.0); EOSINOPHILS # (AUTO) 0.17 K/uL (0.00-0.70); EOSINOPHILS % (AUTO) 1.8 % (0.0-8.0); HEMATOCRIT 21.1 % (42-54); IMMATURE GRANULOCYTE ABSOLUTE 0.08 K/uL (0-1); LYMPHOCYTES # (AUTO) 1.1 K/uL (1.0-4.8); LYMPHOCYTES % (AUTO) 11.1 % (21.0-51.0); MEAN CORPUSCULAR HEMOGLOBIN 34.9 pg (27.0-33.0); MEAN CORPUSCULAR HGB CONC 35.5 g/dL (32.0-36.0); MEAN CORPUSCULAR VOLUME 98.1 fL (79-99); MONOCYTES # (AUTO) 1.1 K/uL (0.1-1.0); MONOCYTES % (AUTO) 11.6 % (3.0-13.0); NEUTROPHILS # (AUTO) 7.1 K/uL (1.8-7.7); NEUTROPHILS % (AUTO) 74.3 % (40.0-77.0); PLATELET COUNT (AUTO) 293 K/uL (130-400); RED BLOOD CELL COUNT(AUTO) 2.15 MIL/uL (4.50-6.20); RED CELL DISTRIBUTION WIDTH 11.9 % (11.0-15.5); WHITE BLOOD COUNT (AUTO) 9.6 K/uL (4.8-10.8)
[2024-05-14 03:59] LABS: CREATININE 0.9 mg/dL (0.5-1.3); POTASSIUM 3.3 mmol/L (3.5-5.1)
[2024-05-14] MEDS ORDERED: ASPI-1005 PO (16:37)
[2024-05-14] MEDS ORDERED: METO25 PO (16:37)
[2024-05-14] MEDS ORDERED: FURO20TA4 PO (16:37)
[2024-05-14] MEDS ORDERED: ATOR40TA69 PO (16:37)
[2024-05-14] MEDS ORDERED: POTA10CA95 PO (16:38)
[2024-05-14] MEDS ORDERED: CLOP-31 PO (16:48)
== END 2024-05-14 17:15 | disposition home or self-care (01) | DRG 233 ==
LOC: EDH 18:27 → EEVIPCON 20:09 → EDHIP 20:09 → OBSVTOIN 20:09 → 2DH 22:40 → 2CH 05-06 17:33 → 2CV 05-08 17:25 → 2AH 05-11 17:39
PROVIDERS: ADMIT Internal Medicine; ATTEND Internal Medicine
PROC: 4A023N7 Measurement of Cardiac Sampling and Pressure, Left Heart, Percutaneous Approach (ICD-10-PCS; 2024-05-06)
PROC: 5A02210 Assistance with Cardiac Output using Balloon Pump, Continuous (ICD-10-PCS; 2024-05-06)
PROC: B2111ZZ Fluoroscopy of Multiple Coronary Arteries using Low Osmolar Contrast (ICD-10-PCS; 2024-05-06)
PROC: B2151ZZ Fluoroscopy of Left Heart using Low Osmolar Contrast (ICD-10-PCS; 2024-05-06)
PROC: B2121ZZ Fluoroscopy of Single Coronary Artery Bypass Graft using Low Osmolar Contrast (ICD-10-PCS; 2024-05-06)
PROC: B2181ZZ Fluoroscopy of Left Internal Mammary Bypass Graft using Low Osmolar Contrast (ICD-10-PCS; 2024-05-06)
PROC: 0PS000Z Reposition Sternum with Rigid Plate Internal Fixation Device, Open Approach (ICD-10-PCS; 2024-05-08)
PROC: 30233R1 Transfusion of Nonautologous Platelets into Peripheral Vein, Percutaneous Approach (ICD-10-PCS; 2024-05-08)
PROC: 05HY33Z Insertion of Infusion Device into Upper Vein, Percutaneous Approach (ICD-10-PCS; 2024-05-08)
PROC: 02100Z9 Bypass Coronary Artery, One Artery from Left Internal Mammary, Open Approach (ICD-10-PCS; principal; 2024-05-08 16:25)
PROC: 021109W Bypass Coronary Artery, Two Arteries from Aorta with Autologous Venous Tissue, Open Approach (ICD-10-PCS; 2024-05-08 16:25)
PROC: 06BQ4ZZ Excision of Left Saphenous Vein, Percutaneous Endoscopic Approach (ICD-10-PCS; 2024-05-08 16:25)
DX: I21.4 Non-ST elevation (NSTEMI) myocardial infarction (principal); I50.23 Acute on chronic systolic (congestive) heart failure; J95.1 Acute pulmonary insufficiency following thoracic surgery; D62 Acute posthemorrhagic anemia; E11.65 Type 2 diabetes mellitus with hyperglycemia; L40.50 Arthropathic psoriasis, unspecified; D72.829 Elevated white blood cell count, unspecified; I25.10 Atherosclerotic heart disease of native coronary artery without angina pectoris; I71.21 Aneurysm of the ascending aorta, without rupture; E78.00 Pure hypercholesterolemia, unspecified; I11.0 Hypertensive heart disease with heart failure; I50.9 Heart failure, unspecified; I25.5 Ischemic cardiomyopathy; K59.00 Constipation, unspecified; I34.0 Nonrheumatic mitral (valve) insufficiency; Z79.82 Long term (current) use of aspirin; Z87.891 Personal history of nicotine dependence; Z79.899 Other long term (current) drug therapy; Z82.49 Family history of ischemic heart disease and other diseases of the circulatory system
CPT/HCPCS: 33967; 36415; 36600; 71045; 71275; 80048; 80053; 80061; 80076; 80305; 82330; 82435; 82550; 82803; 82947; 82948; 83036; 83605; 83735; 83880; 84100; 84132; 84295; 84443; 84484; 85018; 85025; 85027; 85347; 85378; 85384; 85610; 85730; 86850; 86900; 86901; 86923; 93005; 93306; 93312; 93325; 93356; 93459; 93567; 93880; 94002; 94003; 94150; 94640; 94664; 94760; 99156; 99157; A7048; C1894; G0378; J0171; J0282; J0461; J0583; J0612; J0690; J1644; J1815; J1940; J2001; J2250; J2371; J2440; J2704; J2720; J3010; J3475; J3480; J3490; J7030; J7040; J7050; J7608; P9012; P9034; P9045; Q9967; A4215; A4315; A4452; A4510; A4600; A4649; A6204; A6219; C1713; C1776; C1887; Q9965

== ENCOUNTER → 2024-06-05 | Outpatient (CLI) | payer OTHER ==
[~2024-06-05] MED LIST: ASPI-1005 PO; ATOR40TA69 PO; CLOP-31 PO; FURO20TA4 PO; METO25 PO; POTA10CA95 PO
[2024-06-05 16:22] LABS: BASOPHILS # (AUTO) 0.04 K/uL (0.00-0.20); BASOPHILS % (AUTO) 0.6 % (0.0-5.0); EOSINOPHILS # (AUTO) 0.04 K/uL (0.00-0.70); EOSINOPHILS % (AUTO) 0.6 % (0.0-8.0); HEMATOCRIT 29.6 % (42-54); IMMATURE GRANULOCYTE ABSOLUTE 0.02 K/uL (0-1); LYMPHOCYTES # (AUTO) 1.4 K/uL (1.0-4.8); MEAN CORPUSCULAR HEMOGLOBIN 30.5 pg (27.0-33.0); MEAN CORPUSCULAR HGB CONC 31.4 g/dL (32.0-36.0); MONOCYTES # (AUTO) 0.7 K/uL (0.1-1.0); NEUTROPHILS # (AUTO) 5.1 K/uL (1.8-7.7); NEUTROPHILS % (AUTO) 70.5 % (40.0-77.0); PLATELET COUNT (AUTO) 464 K/uL (130-400); RED BLOOD CELL COUNT(AUTO) 3.05 MIL/uL (4.50-6.20); RED CELL DISTRIBUTION WIDTH 13.7 % (11.0-15.5); WHITE BLOOD COUNT (AUTO) 7.2 K/uL (4.8-10.8)
[2024-06-05 16:32] LABS: CREATININE 0.9 mg/dL (0.5-1.3); POTASSIUM 4.2 mmol/L (3.5-5.1)
== END | disposition home or self-care (01) ==
LOC: LAB 15:29
PROVIDERS: ATTEND Internal Medicine
DX: I10 Essential (primary) hypertension (principal); E78.5 Hyperlipidemia, unspecified; I25.10 Atherosclerotic heart disease of native coronary artery without angina pectoris
CPT/HCPCS: 36415; 80048; 85025

== ENCOUNTER → 2024-07-22 | Outpatient (CLI) | payer OTHER ==
[2024-07-22 12:33] LABS: CREATININE 0.9 mg/dL (0.5-1.3); POTASSIUM 4.1 mmol/L (3.5-5.1)
== END | disposition home or self-care (01) ==
LOC: LAB 09:13
PROVIDERS: ATTEND Internal Medicine
DX: I25.10 Atherosclerotic heart disease of native coronary artery without angina pectoris (principal)
CPT/HCPCS: 36415; 80048; 83880

== ENCOUNTER → 2024-11-05 | Outpatient (CLI) | payer OTHER ==
--- NOTE | 2024-11-11 11:19 | HMCSR ---
APPROVED REPORT EXAM: Two-dimensional and M-mode echocardiogram with Doppler and color Doppler. INDICATION ICD: I10.0 Essential (primary) Hypertension 2D Dimensions RVDd4.1 cmLVEF(%)36.7 (>50%)LVED Vol(simp.)151.0 mL IVSd1.1 (0.7-1.1cm)FS(%)18 %LVES Vol(simp.)87.0 mL LVDd5.1 (3.8-5.6cm)Ao Root(2D)3.5 (2.0-3.7cm)LVEF(%, simp.)43 % PWd0.8 (0.7-1.1cm)LVOT diam2.3 (1.8-2.4cm)LA ESV INDEX (BP)31.97 mL/m2 LVDs4.2 (2.5-4.0cm)IVC diam1.8 cm Aortic Valve AoV Vmax1.2 m/[place] GR6.1 mmHgLVOT Vmax1.0 m/s AoV VTI0.3 mAo Mean GR3.4 mmHgLVOT VTI0.21 m YOUNG (VMAX)3.5 cm2AVA (VTI) 3.5 cm2 Mitral Valve MV E Vmax70.2 cm/sDECEL Omzv656 ms MV A Vmax67.5 cm/sP 1/2 T73 ms E/A ratio1.0MVA (PHT)3.0 cm2 TDI E/E' Emsprc57.7E/E' Lateral6.0 Pulmonary Valve PV Vmax1.1 m/sPV VTI0.23 mPV Mean GR3 mmHg PV Peak GR4.6 mmHgPI End Eliane. Elia 0.9 cm/s Tricuspid Valve TR Vmax2.2 m/sRAP (EST) 8 hbCrNQLG15.4 mmHg TR Peak GR19.4 mmHg Left Ventricle The left ventricle function is borderline. Hypokinesis of the inferoseptal and anterior larios. There is borderline left ventricular hypertrophy. LVEF is 40-45%. Grade I diastolic dysfunction. Right Ventricle The right ventricle is mildly dilated. Right ventricular systolic function is mildly reduced. Atria The left atrium size is normal. The right atrium is mildly dilated. Aortic Valve Aortic valve is trileaflet. Aortic valve leaflets are sclerotic but open well. Trace aortic regurgita tion. There is no aortic valvular stenosis. Mitral Valve Mitral valve leaflets are mildly sclerotic but open well. Mitral regurgitation is trace. There is no mitral valve stenosis. Tricuspid Valve The tricuspid valve leaflets appear normal. There is trace tricuspid regurgitation. Pulmonic Valve The pulmonic valve leaflets are thin and pliable; valve motion is normal. There is trace pulmonic bob vular regurgitation. Great Vessels The aortic root is normal in size. IVC is dilated and collapses >50% with inspiration. Pericardium No pericardial effusion. Other Information Quality : GoodRhythm : NSR Conclusion The left ventricle systolic function is borderline. LVEF is 40-45%. Hypokinesis of the inferoseptal and anterior larios. Grade I diastolic dysfunction. Right ventricular systolic function is mildly reduced. Trace aortic regurgitation. Mitral regurgitation is trace.
== END | disposition home or self-care (01) ==
LOC: SHCH 14:03
PROVIDERS: ATTEND Internal Medicine
DX: I10 Essential (primary) hypertension (principal)
CPT/HCPCS: 93306